=== PATIENT | male | born 1970 | race Caucasian/White ===

== ENCOUNTER 2019-11-10 06:51 | Observation (INO) | payer BC ==
[~2019-11-10] VITALS: Ht 182.9 cm; Wt 68.2 kg
--- NOTE | 2019-11-10 06:51 | NUR ---
PT TO ROOM VIA EMS STRETCHER.
--- NOTE | 2019-11-10 07:20 | NUR ---
ABRASIONS NOTED TO BACK, HE STATES FROM FALL, DRIED BLOOD TO RIGHT EYEBROW AREA, WITH CUT TO RIGHT EYELID WITH DRIED BLOOD, PT STATES HE FELL AND HURT HIMSELF LAST NIGHT AROUND 8 AND DECIDED TO JUST SIT ON BENCH AND MUST HAVE FALLEN ASLEEP. PT STATES AT THIS TIME HE IS HOMELESS. HAS ALL HIS CLOTHES IN TWO WHITE PLASTIC BAGS.
--- NOTE | 2019-11-10 07:52 | NUR ---
PT SLEEPING WILL AWAKE WITH VERBAL STIMULI, MAERIC, CUSSING STAFF WHEN TRYING TO CLEAN CUT UP AROUND RIGHT EYE. PT ALERT/ORIENTED X3
[2019-11-10 07:56] LABS: HEMATOCRIT 39.6 % (39.0-50.0); HEMOGLOBIN 13.3 g/dl (14.0-18.0); IMMATURE GRANULOCYTES 0.3 % (0.0-5.0); MEAN CELL VOLUME 110.9 fL CALC (80.0-100.0); MEAN CORPUSCULAR HGB 37.3 pG CALC (26.0-32.0); MEAN CORPUSCULAR HGB CONC 33.6 g/dL CAL (32.0-36.0); NEUT# 3.6 thou/uL (1.82-7.42); RED BLOOD COUNT 3.57 mill/uL (4.70-6.10); RED CELL DISTRI WIDTH 18.2 % (11.5-15.5)
[2019-11-10 08:05] LABS: ALBUMIN 3.7 g/dL (3.2-5.0); ALKALINE PHOSPHATASE 94 u/l (38-126); ANION GAP 13 (6-22 (CALC)); BILIRUBIN, TOTAL 0.6 mg/dL (0.0-1.4); BUN 9 mg/dL (9-20); BUN/CREATININE RATIO 18 (12-20 (CALC)); CARBON DIOXIDE 31 mmol/l (22-30); CHLORIDE 102 mmol/l (95-108); CREATININE 0.5 mg/dL (0.7-1.3); GFR > 60 ML/MIN (>=60 (CALC)); GFR FOR AFR.AMER. > 60 ML/MIN (>=60 (CALC)); POTASSIUM 3.8 mmol/l (3.5-5.1); SGOT/AST 64 u/l (17-59); SODIUM 143 mmol/l (137-146)
[2019-11-10 08:19] LABS: ETHYL ALCOHOL 455 mg/dl (0-30)
--- NOTE | 2019-11-10 08:25 | NUR ---
BLOOD ALCOHOL LEVEL 455
--- NOTE | 2019-11-10 08:25 | NUR ---
IV FLUIDS INFUSING, WARM BLANKETS GIVEN, BED IN LOW POSITION WITH SIDE RAILS UP AND CALL LIGHT IN REACH.
--- NOTE | 2019-11-10 09:26 | NUR ---
PT REMAINS RESTING QUIETLY ON STRETCHER WITH EYES CLOSED. IV FLUIDS INFUSING WITH MVI , PT STATES CAN NOT URINATE YET, URINAL AT BEDSIDE.
--- NOTE | 2019-11-10 10:01 | NUR ---
report given to mani on [employer] (Inspect Manager), will wait for call back when room is ready.
--- NOTE | 2019-11-10 10:25 | NUR ---
WENT INTO PTS ROOM AND FOUND IV FLUIDS UNATTACHED FROM IV WITH BAG OF MVI DRAINED ACROSS SHEETS. CLEANED PT UP AND TRANSPORTED TO MED SURG.
--- NOTE | 2019-11-10 10:34 | NUR ---
PT ARRIVED TO THE UNIT VIA STRETCHER ACCOMPANIED BY STAFF. IV SITE WAS IN WHEN GETTING READY TO REATTATCH THE IV FLUIDS IT WAS OUT.
--- NOTE | 2019-11-10 10:35 | NUR ---
WHILE PT WAS MOVING FROM STRETCHER TO MED SURG BED IV DISLODGED. NURSE AT BEDSIDE.
--- NOTE | 2019-11-10 10:40 | NUR ---
CALLED PHARMACY AND NOTIFIED THEM THAT PT HAD DISLODGED IV FLUIDS AND HAD RECEIVED ONLY ABOUT 450 CC OF FLUID. THEY WILL BRING ANOTHER UP TO MED SURG
--- NOTE | 2019-11-10 11:00 | NUR ---
ASSESSMENT IS COMPLETED: IV SITE WAS REOBTAINED BY KARELY RN, PT C/O BLEEDING STATING" I AM ANEMIC". HR IS REG,PULSES ARE STRONG X4, ABD IS SOFT WITH ACTIVE BS. BREATH SOUNDS ARE CLEAR,BILATERALLY./ PT HAS A SCRATCH OVER THE R EYE BROW. TELE MONITOR IN PLACE. CONTINUE TO OBSERVE AND MONITOR.
--- NOTE | 2019-11-10 13:00 | NUR ---
PT GOT UP AND USED THE BATHROOM AND IV CAME OUT. STOPPED IV FLUIDS
--- NOTE | 2019-11-10 14:30 | NUR ---
NEW IV SITE OBTAINED BY GELY GONZALEZ WITH 1 STICK ENCOURAGED PT TO CALL FOR ASSISTANCE BEFORE GETTING OUT OF BED. TO KEEP FRON GETTING IV OUT.
--- NOTE | 2019-11-10 16:30 | NUR ---
PT IS RELAXING IN BED WITH NO DISTRESS NOTED. IV SITE IS INTACT CONTINUE TO OBSERVE AND MONITOR.
[2019-11-10 19:07] VITALS: BP 142/82
--- NOTE | 2019-11-10 20:45 | NUR ---
PHYSICAL ASSEMENT COMPLETE. VS TAKEN BY JENNIFER @ 1105 ASSESSED. PLAN OF CARE REVIEWED W/ PT, DENIES QUESTIONS, VERBALIZES UNDERSTANDING. PT REFUSES LOVENOX, LOVENOX EDUCATION REINFORCED. LOVENOX HELD. PT REPORTS FEELING ANXIOUS, PT MEDICATED W/ PRN ANXIOLYTIC, SEE MAR. CALL MORSE WITHIN REACH, AGREES TO CALL PRN. BED LOCKED IN LOW POSITION W/ BEDRAILS UP X2, ITEMS WITHIN REACH.
[2019-11-10 23:52] VITALS: BP 139/83
--- NOTE | 2019-11-11 00:51 | NUR ---
VS TAKEN BY BOLOGNA LACER @ [id number] ASSESSED. PT APPEARS TO BE SLEEPING COMFORTABLY. NO APPARENT DISTRESS. RESPIRATIONS REGULAR AND UNLABORED.CALL MORSE REMAINS WITHIN REACH. BED REMAINS LOCKED IN LOW POSITION W/ BEDRAILS UP X2, ITEMS REMAIN WITHIN REACH.
[2019-11-11 01:52] LABS: URINE BILIRUBIN - DIPSTICK NEGATIVE (NEGATIVE); URINE BLOOD DIPSTICK NEGATIVE (NEGATIVE); URINE COLOR YELLOW; URINE GLUCOSE - DIPSTICK NEGATIVE (NEGATIVE); URINE KETONE NEGATIVE (NEGATIVE); URINE LEUK ESTERASE NEGATIVE (NEGATIVE); URINE NITRITE - DIPSTICK NEGATIVE (Negative); URINE PROTEIN - DIPSTICK NEGATIVE (NEG-TRACE); URINE UROBILINOGEN - DIPSTICK 0.2 E.U./dL (0.2)
[2019-11-11 01:56] LABS: BARBITURATES NEGATIVE (NEGATIVE); COCAINE NEGATIVE (NEGATIVE); METHADONE NEGATIVE (NEGATIVE); OXCYCODONE NEGATIVE (NEGATIVE); TETRAHYDROCANNABIONOL NEGATIVE (NEGATIVE); TRICYLIC ANTIDEPRESSANTS NEGATIVE (NEGATIVE)
[2019-11-11 04:29] VITALS: BP 146/87
--- NOTE | 2019-11-11 05:40 | NUR ---
VS TAKEN BY COMPUTERIZED MILL RECORDER @ 6483 ASSESSED. PHYSICAL ASSESMENT REMAINS UNCHANGED. PT RESTING IN BED, APPEARS COMFORTABLE. DENIES PAIN, DENIES NEEDS @ THIS TIME. BED REMAINS LOCKED IN LOW POSITION W/ BEDRAILS UP X2, ITEMS REMAIN WITHIN REACH. CALL MORSE REMAINS WITHIN REACH, AGREES TO CALL PRN.
[2019-11-11 08:10] VITALS: BP 147/90
--- NOTE | 2019-11-11 08:10 | NUR ---
ASSESSMENT IS COMPLTED: IV SITE IS FREE FROM REDNESS OR EDEMA. HR IS REG,PULSES ARE STRONG X4, ABD IS SOFT WITH ACTIVE BS, BREATH SOUNDS ARE CLEAR,BILATERALLY, TELE MONITOR IN PLACE., CONTINUE TO OSBERVE AND MONITOR.
[2019-11-11 11:10] VITALS: BP 140/83
--- NOTE | 2019-11-11 12:35 | NUR ---
PT IS RELAXING IN BED WITH NO DISTRESS N OTED IV SITE IS FREE FROM REDNESS OR EDEMA.
--- NOTE | 2019-11-11 13:30 | NUR ---
INQUIRED IF PT WAS ABLE TO FIND SOMEONE TO TRANSPORT HIM HOME. STATED" NOT YET , I AN WAITING FOR MY PHONE TO CHARGE"
--- NOTE | 2019-11-11 16:30 | NUR ---
PT IS RELAXING IN BED WITH NO DISTRESS NOTED. INQUIRED ABOUT RIDE HOME. WAITING FOR A RETURN CALL.
--- NOTE | 2019-11-11 17:15 | NUR ---
EDITOR PRODUCER INQUIRED WITH PT. UNABLE TO GET A RIDE AT THIS TIME.
--- NOTE | 2019-11-11 19:00 | NUR ---
SPOKE WITH DR MCARTHUR RE: PT UNABLE TO GET A RIDE. WILL BE ABLE TO GET HIM SOMEWHERE TOMORROW.
[2019-11-11 19:10] VITALS: BP 149/75
--- NOTE | 2019-11-11 20:30 | NUR ---
PHYSICAL ASSEMENT COMPLETE. VS TAKEN BY JENNIFER @ 1910 ASSESSED. PLAN OF CARE REVIEWED W/ PT, DENIES QUESTIONS, VERBALIZES UNDERSTANDING. DENIES NEEDS AT THIS TIME. CALL MORSE WITHIN REACH, AGREES TO CALL PRN. BED LOCKED IN LOW POSITION W/ BEDRAILS UP X2, ITEMS WITHIN REACH.
--- NOTE | 2019-11-12 01:02 | NUR ---
PT APPEARS TO BE SLEEPING COMFORTABLY. NO APPARENT DISTRESS. RESPIRATIONS REGULAR AND UNLABORED.CALL MORSE REMAINS WITHIN REACH. BED REMAINS LOCKED IN LOW POSITION W/ BEDRAILS UP X2, ITEMS REMAIN WITHIN REACH.
[2019-11-12 03:20] VITALS: BP 150/90
--- NOTE | 2019-11-12 04:34 | NUR ---
VS TAKEN BY SENIOR MAJOR GIFTS OFFICER @ 0320 ASSESSED. PHYSICAL ASSESMENT REMAINS UNCHANGED. PT RESTING IN BED, APPEARS COMFORTABLE. DENIES PAIN, DENIES NEEDS @ THIS TIME. BED REMAINS LOCKED IN LOW POSITION W/ BEDRAILS UP X2, ITEMS REMAIN WITHIN REACH. CALL MORSE REMAINS WITHIN REACH, AGREES TO CALL PRN.
[2019-11-12 07:40] VITALS: BP 141/100
--- NOTE | 2019-11-12 07:40 | NUR ---
ASSESSMENT IS COMPLETED: PT BP WAS 141/100 INFORMED PT OF RECHECKING BLOOD WORK. IV SITE IS FREE FROM REDNESS OR EDEMA. HR IS REG,PULSES ARE STRONG X4, ABD IS SOFT WITH ACTIVE BS. BREATH SOUNDS ARE CLEAR, BILATERALLY. CONTINUE TO OBSERVE AND MONITOR.
--- NOTE | 2019-11-12 09:00 | NUR ---
RECHECKED BP ON PT 127/78
[2019-11-12] MEDS ORDERED: LIBRIUM25 MG PO (10:14)
--- NOTE | 2019-11-12 11:45 | NUR ---
DISCHARGE INSTRUCTIONS GIVEN AND VERBALIZED UNDERSTANDING, IV SITE DISCONTINUED CATHETER INTACT. NO REDNESS OR EDEMA. Discharge instructions given. Patient verbalizes understanding of same. Discharged in stable condition via Wheelchair to Home with *Other. All belongings sent with pt.VIA CAB TO [facility] [employer] [facility] AND THEN TO [facility] BY BUS.
--- NOTE | 2019-11-12 12:00 | NUR ---
COVERED R EYE WITH NON ADHERENT DRESSING PER PT DUE TO BEING ON A BUS. SMALL DRAINAGE NOTED. CONTINUE TO OBSERVE AND MONITOR.
--- NOTE | 2019-11-12 12:12 | NUR ---
PT PLACED IN A CAB FUNDED BY THE [facility] AND ALSO MONEY FRO THE BUS RIDE TO [facility]
== END 2019-11-12 12:08 | disposition home or self-care (01) | DRG 897 ==
LOC: ED 06:51 → ED-I 09:02 → ED 09:15 → MS2 09:16 → ED-I 09:16 → MS2 09:26
PROVIDERS: Emergency Medicine; ADMIT Internal Medicine; ATTEND Internal Medicine
DX: F10.129 Alcohol abuse with intoxication, unspecified (principal); S00.11XA Contusion of right eyelid and periocular area, initial encounter; M62.50 Muscle wasting and atrophy, not elsewhere classified, unspecified site; I10 Essential (primary) hypertension; F17.210 Nicotine dependence, cigarettes, uncomplicated; W19.XXXA Unspecified fall, initial encounter; Y90.8 Blood alcohol level of 240 mg/100 ml or more
CPT/HCPCS: G0378; J1650; J2060